=== PATIENT | female | born 1995 | race Hispanic/Latino ===

== ENCOUNTER 2017-07-03 20:06 | Emergency (ER) | payer BC ==
[2017-07-03] MEDS ORDERED: Ondansetron ODT 4 MG TAB ONE (20:29)
[2017-07-03] MEDS ORDERED: Ibuprofen 800 MG TAB ONE (20:29)
[2017-07-03] MEDS ORDERED: Acetaminophen 500 MG TAB ONE (21:52)
== END 2017-07-03 22:47 | disposition home or self-care (01) ==
LOC: ERS 20:06
DX: J11.1 Influenza due to unidentified influenza virus with other respiratory manifestations (principal); F41.9 Anxiety disorder, unspecified; F17.210 Nicotine dependence, cigarettes, uncomplicated
CPT/HCPCS: 96360; Q0162

== ENCOUNTER 2018-11-17 22:04 | Emergency (ER) | payer BC ==
[2018-11-17 22:43] LABS: Bilirubin Negative (Negative); Blood, Urine Negative (Negative); Clarity CLEAR (Clear); Glucose, Urine (Dipstick) Negative (Negative); Leukocyte Small (Negative); Nitrite Negative (Negative); Protein, Urine (Dipstick) Negative (Neg-Trace); Specific Gravity, Urine 1.027 (1.002-1.036); pH, Urine 6.5 (5.0-9.0)
[2018-11-17 22:44] LABS: Bacteria/HPF None Seen HPF (None Seen); Hyaline Casts/LPF 0-3 HYALINE CAST LPF (0-3 Hyaline); WBC/HPF 0-3 HPF (0-3)
[2018-11-17 22:48] LABS: #Eosinphils 0.1 thou/uL (0.0-0.7); #Lymphocytes 2.2 thou/uL (1.20-3.40); #Monocytes 0.7 thou/uL (0.11-0.59); #Neutrophils 4.3 thou/uL (1.40-6.50); %Basophils 0.4 % (0.0-1.0); %Eosinophils 1.4 % (0.0-10.0); %Lymphocytes 30.5 % (21.0-51.0); %Monocytes 9.2 % (0.0-10.0); %Neutrophils 58.6 % (42.0-75.0); Hemoglobin 12.3 g/dL (12.0-16.0); Mean Corpuscular HGB CONC 34.7 g/dL (32.0-36.0); Mean Corpuscular Hemoglobin 31.3 pg (27.0-31.0); Mean Corpuscular Volume 90.2 fL (78.0-98.0); Mean Platelet Volume 8.1 fL (7.4-10.4); Platelet Count 198 thou/uL (130-400); RBC Distribution Width 10.9 % (11.5-14.5); Red Blood Cell (RBC) Count 3.92 mill/uL (4.20-5.40); White Blood Cell (WBC) Count 7.3 thou/uL (4.8-10.8)
[2018-11-17 23:11] LABS: ALT (SGPT) 12 U/L (8-55); AST (SGOT) 15 U/L (5-34); Albumin 4.2 g/dL (3.5-5.0); Alkaline Phosphatase 51 U/L (40-150); Anion Gap 12 mmol/L (10-20); BUN (Urea Nitrogen) 12 mg/dL (7.0-18.7); Bilirubin, Total 0.3 mg/dL (0.2-1.2); Calc. Creatinine Clearance 0 mL/min (70-130); Calcium 9.2 mg/dL (7.8-10.44); Carbon Dioxide 23 mmol/L (22-29); Chloride 106 mmol/L (98-107); Estimated GFR-MDRD Greater than 90; Globulin 2.8 g/dL (2.4-3.5); Glucose 96 mg/dL (70-105); Potassium 3.6 mmol/L (3.5-5.1); Sodium 137 mmol/L (136-145)
--- NOTE | 2018-11-17 23:37 | ULT ---
Exam: Pelvic ultrasound HISTORY: Pelvic pain; positive test COMPARISON: None TECHNIQUE: Multiple grayscale and color Doppler images were obtained in a transabdominal and transvag inal pelvic ultrasound. Spectral analysis of the Doppler waveforms of the ovaries were performed. FINDINGS: CERVIX: No evidence of nabothian cysts. UTERUS: A gestational sac is seen in the uterus. This contains a pole with heart rate of 126 bp m. [place]-rump length of the pole is 0.92 cm which estimates gestational age of 7 weeks 0 days. A normal-appearing yolk sac is seen. No free fluid is seen in the pelvis. RIGHT OVARY: Normal flow without focal mass. LEFT OVARY: Normal flow without focal mass. IMPRESSION: Single live intrauterine with estimated age of 7 weeks 0 days
[2018-11-19 21:20] LABS: Chlamydia by PCR Inconclusive (NotDetected); GC by PCR Inconclusive (NotDetected)
== END 2018-11-18 00:28 | disposition home or self-care (01) ==
LOC: ERS 22:04
DX: O20.0 Threatened abortion (principal); O99.341 Other mental disorders complicating pregnancy, first trimester; F41.9 Anxiety disorder, unspecified; F32.9 Major depressive disorder, single episode, unspecified; Z87.891 Personal history of nicotine dependence; Z3A.01 Less than 8 weeks gestation of pregnancy
CPT/HCPCS: 36415; 76856; 80053; 81003; 81015; 84702; 85025; 86900; 86901; 87480; 87491; 87510; 87591; 87660

== ENCOUNTER 2019-02-07 08:36 | Outpatient (CLI) | payer BC, MEDICAID ==
--- NOTE | 2019-02-07 13:00 | ULT ---
OB ULTRASOUND COMPLETE GREATER THAN 14 WEEKS: 02/07/19 HISTORY: anatomy. Single viable intrauterine fetus is noted in transverse lie on the maternal left side. Placenta is an terior and low lying but without manas placenta previa. heart rate: 150 beats per minute. Amniotic fluid is within normal limits. ANATOMY: The visualized brain, four chamber heart, three vessel cord, stomach, bladder, kidneys, spine, extremity regions are unremarkable. Cervical length is within normal limits. BIOMETRY: BPD 4.3 cm - - 19 weeks, 0 days [place] circumference 16.1 cm - - 19 weeks, 0 days Abdominal circumference 13.9 cm - - 19 weeks, 2 days Femur length 2.8 cm - - 18 weeks, 5 days IMPRESSION: Single viable intrauterine fetus at 19 weeks, 0 days gestation. ARJUN 07/06/2019. Estimated weight 266 grams. POS: OFF
== END 2019-02-07 08:37 | disposition home or self-care (01) ==
LOC: BICULT 08:36
PROVIDERS: ATTEND Family Medicine
DX: Z34.82 Encounter for supervision of other normal pregnancy, second trimester (principal); Z3A.19 19 weeks gestation of pregnancy
CPT/HCPCS: 76805

== ENCOUNTER 2019-02-15 18:11 | Day surgery (SDC) | payer BC, OTHER ==
[2019-02-15 19:24] LABS: Bacteria/HPF None Seen HPF (None Seen); Bilirubin Negative (Negative); Blood, Urine Negative (Negative); Clarity Clear (Clear); Glucose, Urine (Dipstick) Normal (Negative); Leukocyte 25 Leu/uL (Negative); Nitrite Negative (Negative); Protein, Urine (Dipstick) 20 mg/dL (Neg-Trace); Squamous Epithelial 0-3 HPF (0-3); Urobilinogen 3 mg/dL (Less than 2)
--- NOTE | 2019-02-15 19:56 | ULT ---
ULTRASOUND OBSTETRICAL LIMITED: DATE: 02/15/2019 HISTORY: 23-year-old female with abdominal pain during second trimester of . FINDINGS: number: wal[place] lie: Breech Maternal cervix: 3.5 cm. Closed. Placenta: Anterior. No placenta previa. No abruptio placentae. Amniotic fluid volume: STAN = 12.5cm heart rate: 141 bpm anatomy not evaluated. biometry not measured: IMPRESSION: 1) Live 2nd trimester intrauterine gestation. 2) breech lie. 4) no placenta previa.
--- NOTE | 2019-02-16 09:44 | SS ---
DATE OF ADMISSION: 02/15/2019 DATE OF DISCHARGE: 02/15/2019 REGULAR PHYSICIAN: Carmen Shafer MD EVALUATING PHYSICIAN: Eddie Willis MD CHIEF COMPLAINT: Abdominal pain, possible leakage of fluid. HISTORY OF PRESENT ILLNESS: Ms. Cowart is a 23-year-old G3, P2-0-0-2 with an estimated date of confinement of 07/06/2019, who presents complaining of a 12- to 24-hour history of left-sided abdominal pain, worse when she walks along with possible leakage of fluid. She denies vaginal bleeding. She does report occasionally urinary frequency. Her care has been with Dr. Shafer and she was told recently that she had a low-lying placenta. PAST OBSTETRICAL HISTORY: Two uncomplicated vaginal deliveries at term. PAST MEDICAL HISTORY: None. PAST SURGICAL HISTORY: None. CURRENT MEDICATIONS: vitamins. ALLERGIES: NO KNOWN ALLERGIES. SOCIAL HISTORY: Denies tobacco, alcohol, or drug use. REVIEW OF SYSTEMS: Denies nausea, vomiting, fever, chills, or vaginal bleeding. PHYSICAL EXAMINATION: VITAL SIGNS: Stable. She is afebrile. GENERAL: She is in no acute distress. ABDOMEN: Soft, nontender, and gravid. Ultrasound shows a breech consistent with dates with an STAN of 12.5, an anterior placenta without evidence of low-lying placenta or previa. Urinalysis returned showing a specific gravity of 1.032 with trace protein, negative ketones, negative blood, negative nitrites, negative bilirubin. Leukocyte esterase is small. Microscopic urinalysis shows 4-6 rbc's, 4-6 wbc's with no bacteria seen. 0-3 squamous cells are seen. Pelvic examination was then performed after the ultrasound, and the cervix is long and closed. There is no fluid or blood in the vagina. ASSESSMENT: 1. 19 and 6/7th week intrauterine . 2. No evidence of ruptured membranes. 3. Suspected round ligament pain. PLAN: The nature of my findings have been discussed with her in detail. She was told to rest at home, possibly use a heating pad low on her back and Tylenol for symptoms. She states she has a followup appointment with Dr. Shafer next week. She voiced understanding of her discharge instructions and was sent home in good condition. Job ID: [id number]
== END 2019-02-15 20:11 | disposition home or self-care (01) ==
LOC: L&D/OP 18:11
PROVIDERS: ATTEND Family Medicine
DX: O99.89 Other specified diseases and conditions complicating pregnancy, childbirth and the puerperium (principal); R10.9 Unspecified abdominal pain; Z3A.19 19 weeks gestation of pregnancy
CPT/HCPCS: 76815; 81003; 81015; 99285

== ENCOUNTER 2019-02-23 08:30 | Outpatient (CLI) | payer BC, MEDICAID ==
--- NOTE | 2019-02-23 10:12 | ULT ---
ULTRASOUND OB FOLLOWUP: HISTORY: Low-lying placenta. COMPARISON: Limited OB ultrasound 02/12/2019. FINDINGS: Real-time, [place] scale, and color evaluation and spectral analysis of the gravid is performed. Single viable intrauterine . Amniotic fluid index is normal. The placenta is anterior without ev idence of previa or a low-lying placental tip. The heart rate is documented at 150 b.p.m. Cep halic presentation. IMPRESSION: Normal examination. No evidence of a low-lying placenta or placenta previa. POS: TPC
== END 2019-02-23 08:31 | disposition home or self-care (01) ==
LOC: BICULT 08:30
PROVIDERS: ATTEND Family Medicine
DX: O44.40 Low lying placenta NOS or without hemorrhage, unspecified trimester (principal)
CPT/HCPCS: 76816

== ENCOUNTER 2019-07-04 11:14 | Inpatient (IN) | payer BC, OTHER ==
[2019-07-04 11:43] VITALS: BMI 32.3
[2019-07-04] MEDS ORDERED: Fentanyl 4 mcg/Bup 0.1% Cadd 0 ML ONE (11:48)
[2019-07-04] MEDS ORDERED: Fentanyl 4 mcg/Bup 0.1% Cadd 100 ML ONE (11:49)
[2019-07-04] MEDS ORDERED: Lidocaine 1% (PF) 30 ML VIAL SC PRN (12:10)
[2019-07-04] MEDS ORDERED: Promethazine HCl 25 MG/ML VIAL IM PRN ×3 (12:10→14:31)
[2019-07-04] MEDS ORDERED: HYDROcodone/Acetaminophen 5/325 mg Tablet PO PRN ×3 (12:10→16:32)
[2019-07-04] MEDS ORDERED: Ibuprofen 800 MG TAB PO PRN (12:10)
[2019-07-04] MEDS ORDERED: hydrALAZINE 20 MG/ML VIAL SLOW IVP PRN ×3 (12:10→16:32)
[2019-07-04] MEDS ORDERED: Ondansetron PF 4 MG/2 ML Vial IVP PRN ×4 (12:10→16:32)
[2019-07-04] MEDS ORDERED: Butorphanol Tartrate 1 MG/ML VIAL SLOW IVP PRN (12:10)
[2019-07-04] MEDS ORDERED: Lidocaine 1% (PF) 30 ML VIAL ONE (12:11)
[2019-07-04] MEDS ORDERED: NS / Oxytocin 40 units/1000ml 1,000 ML ONE (12:11)
[2019-07-04] MEDS ORDERED: Lactated Ringer's 1,000 ML IV SCH (12:15)
[2019-07-04 12:20] LABS: Hemoglobin 11.9 g/dL (12.0-16.0); Mean Corpuscular HGB CONC 33.5 g/dL (32.0-36.0); Mean Corpuscular Hemoglobin 28.2 pg (27.0-31.0); Mean Corpuscular Volume 84.1 fL (78.0-98.0); Mean Platelet Volume 9.8 fL (7.4-10.4); Platelet Count 181 thou/uL (130-400); Red Blood Cell (RBC) Count 4.21 mill/uL (4.20-5.40); White Blood Cell (WBC) Count 10.6 thou/uL (4.8-10.8)
--- NOTE | 2019-07-04 12:51 | PDOC.EVN ---
Event Note - Event Note Event Note: Courtesy orders placed earlier Orders...only. Patient not seen by me
[2019-07-04 13:44] LABS: HBSAg Index 0.21 S/CO (0-0.99); HIV (1/2) Antibody/Antigen Non-Reactive (NonReactive); HIV 1/2 INDEX 0.11 S/CO (<1.00); Hep B Surf Ag Non-Reactive S/CO (NonReactive)
[2019-07-04 13:45] LABS: Syphilis Antibody Nonreactive (Nonreactive); Syphilis Antibody Index 0.04 S/CO (<1.00 Non-Reactive)
[2019-07-04] MEDS ORDERED: Naloxone HCl 0.4 mg/ml Vial IVP PRN ×4 (14:31)
[2019-07-04] MEDS ORDERED: diphenhydrAMINE 50 MG/ML VIAL IVP PRN ×2 (14:31)
[2019-07-04] MEDS ORDERED: Acetaminophen 325 MG TAB PO PRN ×2 (14:31)
[2019-07-04] MEDS ORDERED: ePHEDrine/0.9% NaCl/PF SYRINGE 50 mg/10 ml SLOW IVP PRN ×2 (14:31)
[2019-07-04] MEDS ORDERED: Lactated Ringer's 500 ML IV PRN ×2 (14:31)
[2019-07-04] MEDS ORDERED: Fentanyl 4 mcg/Bupivacaine 0.1% Cassette 100 ML EPIDURAL SCH (14:45)
[2019-07-04] MEDS ORDERED: Communication Order-Pharmacy FS SCH ×2 (14:45)
[2019-07-04] MEDS: NS / Oxytocin 40 units/1000ml 1,000 ML IV PRN ×2 (15:05→15:59)
[2019-07-04] MEDS ORDERED: diphenhydrAMINE 25 MG CAP PO PRN (16:32)
[2019-07-04] MEDS ORDERED: NS / Oxytocin 40 units/1000ml 1,000 ML IV SCH (16:32)
[2019-07-04] MEDS ORDERED: Acetaminophen/Codeine 30-300mg Tablet PO PRN (16:32)
[2019-07-04] MEDS ORDERED: Preparation H Ointment 28 GM TUBE PR PRN (16:32)
[2019-07-04] MEDS ORDERED: Milk Of Magnesia 30 ML UDCUP PO PRN (16:32)
[2019-07-04] MEDS ORDERED: Benzocaine-Menthol 82.5 ML CAN TOP PRN (16:32)
[2019-07-04] MEDS ORDERED: Lanolin Ointment 7 GM TUBE TOP PRN (16:32)
[2019-07-04] MEDS ORDERED: traMADol HCl 50 MG TAB PO PRN (16:32)
[2019-07-04] MEDS ORDERED: Bisacodyl 10 MG SUPP PR PRN (16:32)
[2019-07-04] MEDS: Ferrous Sulfate 325 MG TAB PO SCH (17:30)
[2019-07-04] MEDS: Docusate Calcium (SURFAK) 240 MG CAP PO SCH (21:18)
[2019-07-04] MEDS: Ibuprofen 800 MG TAB PO SCH (21:18)
[2019-07-05] MEDS: Ibuprofen 800 MG TAB PO SCH ×3 (05:26→22:14)
[2019-07-05] MEDS: Ferrous Sulfate 325 MG TAB PO SCH ×2 (08:07→15:49)
[2019-07-05] MEDS ORDERED: Prenatal Vitamin 1 TAB PO SCH (09:00)
[2019-07-05] MEDS: Docusate Calcium (SURFAK) 240 MG CAP PO SCH ×2 (09:30→22:14)
[2019-07-06] MEDS: Ibuprofen 800 MG TAB PO SCH (05:42)
[2019-07-06] MEDS: Ferrous Sulfate 325 MG TAB PO SCH (09:11)
[2019-07-06 10:53] VITALS: BP 121/76; TEMP 98
== END 2019-07-06 12:45 | disposition home or self-care (01) | DRG 807 ==
LOC: L&D 11:14 → L&D-LIB 11:46 → 3SW 16:59
PROVIDERS: ADMIT Family Medicine; ATTEND Family Medicine
PROC: 10E0XZZ Delivery of Products of Conception, External Approach (ICD-10-PCS; principal; 2019-07-04)
PROC: 10907ZC Drainage of Amniotic Fluid, Therapeutic from Products of Conception, Via Natural or Artificial Opening (ICD-10-PCS; 2019-07-04)
DX: O80 Encounter for full-term uncomplicated delivery (principal); Z37.0 Single live birth; Z3A.39 39 weeks gestation of pregnancy
CPT/HCPCS: 36415; 85027; 86780; 86850; 86900; 86901; 87340; 87389; J2001

== ENCOUNTER 2019-11-03 11:36 | Inpatient (IN) | payer BC, OTHER ==
[~2019-11-03 11:36] MED LIST: Magnevist 469MG/ML 20 ML VIAL ONE
[2019-11-03] MEDS ORDERED: Ondansetron PF 4 MG/2 ML Vial ONE (12:23)
[2019-11-03] MEDS ORDERED: Ketorolac Tromethamine 30 MG/ML VIAL ONE (12:23)
[2019-11-03] MEDS ORDERED: Morphine 4 MG/ML VIAL ONE (12:23)
[2019-11-03 12:38] LABS: #Eosinphils 0.1 thou/uL (0.0-0.7); #Lymphocytes 1.7 thou/uL (1.20-3.40); #Monocytes 0.4 thou/uL (0.11-0.59); %Basophils 0.9 % (0.0-1.0); %Eosinophils 1.3 % (0.0-10.0); %Lymphocytes 32.8 % (21.0-51.0); %Monocytes 6.8 % (0.0-10.0); %Neutrophils 58.2 % (42.0-75.0); Hemoglobin 13.3 g/dL (12.0-16.0); Mean Corpuscular HGB CONC 32.7 g/dL (32.0-36.0); Mean Corpuscular Hemoglobin 29.6 pg (27.0-31.0); Mean Corpuscular Volume 90.8 fL (78.0-98.0); Mean Platelet Volume 8.7 fL (7.4-10.4); Platelet Count 187 thou/uL (130-400); RBC Distribution Width 12.9 % (11.5-14.5); Red Blood Cell (RBC) Count 4.49 mill/uL (4.20-5.40); White Blood Cell (WBC) Count 5.1 thou/uL (4.8-10.8)
[2019-11-03 12:58] LABS: ALT (SGPT) 20 U/L (8-55); AST (SGOT) 19 U/L (5-34); Albumin 4.3 g/dL (3.5-5.0); Alkaline Phosphatase 79 U/L (40-110); Anion Gap 12 mmol/L (10-20); BUN (Urea Nitrogen) 10 mg/dL (7.0-18.7); Bilirubin, Total 0.5 mg/dL (0.2-1.2); Calc. Creatinine Clearance 0 mL/min (70-130); Calcium 9.3 mg/dL (7.8-10.44); Carbon Dioxide 21 mmol/L (22-29); Chloride 107 mmol/L (98-107); Estimated GFR-MDRD Greater than 90; Globulin 3.2 g/dL (2.4-3.5); Glucose 96 mg/dL (70-105); Potassium 4.1 mmol/L (3.5-5.1); Protein, Total 7.5 g/dL (6.0-8.3); Sodium 136 mmol/L (136-145)
[2019-11-03] MEDS ORDERED: Fentanyl 100 MCG/2 ML VIAL ONE (13:16)
[2019-11-03 13:37] LABS: Bilirubin Negative (Negative); Blood, Urine Negative (Negative); Clarity Clear (Clear); Glucose, Urine (Dipstick) Normal (Negative); Leukocyte Negative Leu/uL (Negative); Nitrite Negative (Negative); Protein, Urine (Dipstick) Negative (Neg-Trace); Urobilinogen Normal mg/dL (Less than 2)
[2019-11-03 13:39] LABS: Pregnancy Test - Urine (BHCG) Negative (Negative); Pregu Control Background? CLEAR/WHITE (CLR/WHITE); Pregu Control Bar Appear? YES (CONTROL BAR)
--- NOTE | 2019-11-03 14:04 | CT ---
CT Stone Protocol 11/03/2019 12:02 PM HISTORY: Back pain for 3 days. COMPARISON: Postcontrast CT abdomen and pelvis on 01/17/2017 Technique: Multiple contiguous axial CT images are obtained through the abdomen and pelvis without IV contrast. Coronal reformats are provided. FINDINGS: This examination is limited for the evaluation of solid organs and vascular structures due to the lac k of intravenous contrast. Lower Chest: Dependent bibasilar atelectasis. Abdomen: Liver: Grossly normal non-enhanced CT appearance. Gallbladder: Within normal limits for CT imaging. Pancreas: Grossly normal nonenhanced CT appearance. Spleen: Grossly normal nonenhanced CT appearance. Adrenals: Grossly normal nonenhanced CT appearance. Kidneys: No renal calculi are visualized, and there is no evidence of hydronephrosis. Ureters: No ureteral calculus is seen.. Pelvis: Urinary bladder: within normal limits. Reproductive Organs: Previously seen intrauterine contraceptive device is no longer visualized. A 2.9 cm hypodense cystic lesion is seen just superior to the uterine fundus and appears contiguous with the left ovary and probably represents a left ovarian cyst versus paraovarian cyst. Lymph Nodes: No enlarged lymph nodes. Bowel: Small hiatal hernia is seen. Loops of small bowel are normal in caliber. Appendix: The appendix is normal in caliber. Peritoneum: No free fluid, free air, or fluid collection. Retroperitoneum: within normal limits. Vessels: Abdominal aorta is normal in caliber.. Abdominal Wall: within normal limits. Bones: within normal limits. IMPRESSION: 1. No renal or ureteral calculi are seen bilaterally. 2. Probable small left ovarian versus paraovarian cyst. 3. No CT evidence of appendicitis. 4. Small hiatal hernia.
[2019-11-03] MEDS ORDERED: Acetaminophen 325 MG TAB PO PRN (15:07)
[2019-11-03] MEDS ORDERED: Ondansetron ODT 4 MG TAB PO PRN (15:11)
--- NOTE | 2019-11-03 16:49 | MRI ---
MRI OF THE LUMBAR SPINE WITHOUT AND WITH CONTRAST: 11/03/19 COMPARISON: CT abdomen/pelvis 11/03/19. HISTORY: Left flank pain that started three days ago. Chronic back pain. TECHNIQUE: Multiplanar and multisequence MR images were obtained of the lumbar spine without and with IV contras t. FINDINGS: There is mild desiccation of the L5-S1 intervertebral disc. The vertebral bodies demonstrate normal h eight without fracture or subluxation. The conus medullaris terminates normally at L1. There is a wel l circumscribed cystic structure in the pelvis measuring 1.9 cm in size which likely represents a lef t ovarian cyst/follicle as it is immediately adjacent to the left ovary. The other prevertebral and p araspinal soft tissues are unremarkable. No abnormal enhancement is seen on this examination. T12-L1 through L4-5: Unremarkable. L5-S1: There is a right paracentral protrusion measuring 7 mm in size. This impresses upon the right S1 nerve root. This causes mild central canal stenosis. No posterior facet arthrosis. No significant neural foraminal stenosis. IMPRESSION: There is a small protrusion at L5-S1 impressing upon the right S1 nerve root. POS: EAA
--- NOTE | 2019-11-03 17:15 | MRI ---
MRI OF THE THORACIC SPINE WITHOUT AND WITH CONTRAST: 11/03/19 HISTORY: Left flank and back pain that is 10 out of 10 in severity. TECHNIQUE: Multiplanar and multisequence MRI images were obtained in a thoracic spine without and with IV contra st. FINDINGS: The vertebral bodies and intervertebral discs demonstrate normal height and alignment without fractur e or subluxation. No marrow signal abnormality is present. The visualized cord demonstrates normal signal throughout. No abnormal enhancement is seen on this ex amination. The prevertebral and paraspinal soft tissues are unremarkable. No significant posterior bulge or protrusion is seen throughout the thoracic spine. No neural foramin al stenosis is seen. No posterior facet arthrosis is seen. IMPRESSION: Normal MRI of the thoracic spine. POS: XIANGA
--- NOTE | 2019-11-03 17:54 | HP ---
CHIEF COMPLAINT: Back pain. HISTORY OF PRESENT ILLNESS: A 24-year-old female without significant past medical history, presenting with 3 day duration of back pain. Back pain is worse without any movement. It is mostly on the lower back, constant, without any radiation quality. Mo associated tingling, numbness in her extremities including saddle anesthesia and no incontinence. She has 3 children and she states that she knows what the pain is and this is much severe. She denies any recent travel, trauma to the back or muscular injury such as lifting any heavy objects. She denies being diabetic. No rash in the body. No fever recently. No sick exposure. In the ER, she received fentanyl, morphine as well as Toradol. The patient's pain did not relieve. ER physician asked for admission evaluation. No prior history of this severe nature of the back pain. Occasionally, she does have some on and off pain, but this is most severe that she could not handle, and she needs to come to the ER. REVIEW OF SYSTEMS: 13-point review of systems reviewed with the patient and she denies other than what is addressed in the history of present illness. She has no fever, night sweats, or chills. No productive cough, chest pain, or orthopnea. No nausea, vomiting, abdominal pain, constipation, diarrhea, hematuria, hematochezia, denies dysuria. Her last menstrual cycle was in the 3rd week of September. PAST MEDICAL HISTORY: None. SURGICAL HISTORY: None. SOCIAL HISTORY: She has 3 children. Natural childbirth. Does not smoke or drink alcohol. FAMILY HISTORY: Father had hypertension. Mother has ALS. MEDICATIONS: None. PHYSICAL EXAMINATION: GENERAL: She is afebrile and normotensive. She is in mild distress currently. She just returned from getting MRI. She requires assistance to get on to the bed. I was able to examine her briefly, but she does not want me to touch her back at this time. Just a quick look at her back, I do not see any abnormalities including rash. However, I could not completely examine including flank, side, as well as on the spine. CARDIOVASCULAR: Rate and rhythm without murmurs, rubs, or gallops. LUNGS: Clear to auscultation with no wheezing, rales, or rhonchi. ABDOMEN: Soft, nontender, nondistended. Good bowel sounds. EXTREMITIES: Without any pitting edema. NEUROLOGIC: I did not see any focal deficits, however, complete exam is not performed. PSYCHIATRIC: Appropriate mood and affect. LABORATORY DATA: CBC in the normal range. Normal MRI of the thoracic spine. There is a small protrusion at the L5-S1 impinging on the right S1 nerve root. CT of the abdomen and pelvis, no renal or ureteral calculi, left ovarian cyst, no evidence of appendicitis, small hiatal hernia. IMPRESSION AND PLAN: This is a 24-year-old female presenting with severe back pain. The patient did not have any neurological compromise other than severe pain. She has no saddle anesthesia. No tingling, weakness, or numbness in her extremities. based on MRI report, She does have a small protrusion at the L5-S1 impinging on the S1 nerve root. 1. Disk protrusion. 2. Impingement on the S1 nerve root. I believe mostly supportive care at this point with pain control. I will consult Neurosurgery for other recommendations including surgical intervention and/or brace. We will follow the clinical course. Job ID: [id number] [facility]ENTER[facility]
[2019-11-03 19:05] LABS: Amphetamine Not Detected (NotDetected); Barbiturates Screen Not Detected (NotDetected); Benzodiazepine Screen Not Detected (NotDetected); Cocaine Metabolite Screen Not Detected (NotDetected); Medtox Control Line Valid? VALID (VALID); Medtox Reader # READER 1; Methadone Not Detected (NotDetected); Methamphetamine Not Detected (NotDetected); Opiate Screen Detected (NotDetected); Oxycodone Screen Not Detected (NotDetected); Phencyclidine (PCP) Not Detected (NotDetected); THC/Cannabinoid Screen Detected (NotDetected); Tricyclic Screen Not Detected (NotDetected)
[2019-11-03] MEDS: HYDROcodone/Acetaminophen 5/325 mg Tablet PO PRN ×2 (19:19→23:11)
[2019-11-03] MEDS: Cyclobenzaprine 10 MG TAB PO PRN (19:44)
[2019-11-03 19:56] VITALS: BMI 29.8
[2019-11-04] MEDS: HYDROcodone/Acetaminophen 5/325 mg Tablet PO PRN ×2 (04:22→20:05)
[2019-11-04] MEDS ORDERED: diphenhydrAMINE 25 MG CAP PO PRN (08:07)
[2019-11-04] MEDS ORDERED: Dexamethasone 4 MG TAB PO SCH (09:00)
[2019-11-04] MEDS ORDERED: tiZANidine HCl 4 MG TAB PO SCH (09:00)
--- NOTE | 2019-11-04 09:31 | CON ---
DATE OF CONSULTATION: 11/04/2019 HISTORY OF PRESENT ILLNESS: Ms. Cowart is a 24-year-old female, who presents to the emergency room with 3 to 4 days of lower back pain radiating into bilateral gluteal muscles. She states she does not know what happened or how she hurt her back. It is unclear what she might have done leading up to this pain. She is concerned because her mother had back surgery and was diagnosed with ALS and a year later. She states that she does not want this to happen to her. Her condition is exacerbated by movement to the point that she states she cannot walk. When I saw her in the room, she had a Humphries in place and states that she needs assistance to move. She does state that she has recently given to a third child. MEDICATIONS: None. PAST SURGICAL HISTORY: None. PAST MEDICAL HISTORY: None. SOCIAL HISTORY: 3 children. Does not smoke or drink alcohol. Denies illicit drugs. FAMILY HISTORY: Father, hypertension. Mother from ALS. REVIEW OF SYSTEMS: CONSTITUTIONAL: Denies fever or chills. EAR, NOSE, AND THROAT: Denies change in vision or hearing. CARDIAC: Denies chest pain, shortness of breath, or diaphoresis. PULMONARY: Denies shortness of breath, cough, or hemoptysis. GI: Denies abdominal pain, nausea, vomiting, diarrhea, change in stool formation and consistency. : Denies bloody urine. Complains of frequency of urination and trouble holding her urine. SKIN: Denies skin rash, bruising, bleeding, skin masses. MUSCULOSKELETAL: As per history of present illness. NEUROLOGIC: As per history of present illness. PSYCHOLOGICAL: Denies anxiety, depression, or behavior changes. PHYSICAL EXAMINATION: HEENT: Pupils are equal. Extraocular movements are intact. NECK: Soft, supple. No masses are noted. Range of motion is intact and nonpainful. NEUROLOGIC: Awake, alert, oriented x3. Memory, attention, fund of knowledge. Cranial nerves grossly intact. Due to the pain, she has reduced strength in her iliopsoas, quadriceps, hamstrings, anterior tib, EHL, and gastrocnemius. In my opinion, she was not trying to push against resistance. There is no area of dermatomal or sensory loss. Toes are downgoing. Unable to assess gait. LABORATORY DATA: MRI showed a right 7 mm bulging disk that is pushing on the S1 nerve root. PLAN: This could be managed as outpatient. Recommend physical therapy and pain management for transforaminal epidural steroid injections. We recommend her to get upright x-rays of her L-spine, flexion and extension view to assess for any instability if conservative measures fail and she considers surgery at a later time. We asked that she would make an appointment with our clinic if she would like to peruse surgery at a later date. Job ID: [id number] MTDD
--- NOTE | 2019-11-04 09:39 | PRG ---
DATE OF SERVICE: 11/04/2019 I personally interviewed and examined the patient, agreed with documentation of Beau Rodriguez PA-C, dated 11/04/2019. Briefly, Shanelle Cowart is a 24-year-old woman with a few month history of on and off back pain crescendoing in the last 4 days to the point where she could not manage her pain at home. She came to the hospital. Since hospitalization, she has noticed some paresthesias down the legs, especially on the right side involving the foot and the heel. It is very difficult for her pain to get under better control. Ms. Cowart is rather adamant that she does not want to consider surgical intervention currently. On my neurological examination, I do not find that Ms. Tavarez is giving full effort for her motor examination. This could be because of the pain that she is experiencing. Nonetheless, I think her participation in the examination is problematic. She has problematic toward interpreting her true motor function. I reviewed MR image of the lumbar spine showing a moderate-sized intervertebral disk herniation in the lumbosacral interspace on the right side touching the S1 nerve root. I had a long discussion Ms. Cowart about management. She would like to try pain management injections and physical therapy rather than surgical intervention. If those modalities fail to alleviate her pain, we can operate at any time in the future. Job ID: [id number]
[2019-11-04] MEDS: Docusate 100 MG CAP PO SCH ×2 (09:50→20:05)
[2019-11-04] MEDS: Morphine 2 MG/ML SYRINGE SLOW IVP PRN ×2 (10:09→22:05)
--- NOTE | 2019-11-04 12:06 | PDOC.HOSPP ---
- Subjective Encounter Date: 11/04/19 Encounter Time: 08:50 Subjective: pain controlled, counselled on pros and cons of steroid injection. she would benefit with trial of injection. otherwise risk for opioid addiction. I explained to the pt. - Objective Vital Signs & Weight: Vital Signs (12 hours) Temp Pulse Resp BP BP BP Pulse Ox 11/04/19 08:00 98.7 F 60 16 114/67 100 11/04/19 07:00 98.9 F 60 16 114/52 L 150/85 H 100 11/04/19 04:32 98.2 F 60 16 110/67 100 Weight Admit Weight 158 lb Weight 158 lb I&O: 11/03/19 11/04/19 11/05/19 06:59 06:59 06:59 Intake Total 400 450 Output Total 150 650 Balance 250 -200 Result Diagrams: 11/03/19 12:14 11/03/19 12:14 Hospitalist ROS - Medication Medications: Active Medications Generic Name Dose Route Start Last Admin Trade Name Freq PRN Reason Stop Dose Admin Hydrocodone Bitart/Acetaminophen 1 tab 11/03/19 15:07 11/04/19 04:22 [place] 5/325 PO 1 tab Q4H PRN Administration Moderate Pain (4-6) Cyclobenzaprine HCl 10 mg 11/03/19 15:11 11/03/19 19:44 Flexeril PO 10 mg TID PRN Administration Muscle Spasm Docusate Sodium 100 mg 11/04/19 09:00 11/04/19 09:50 Colace PO 100 mg BID LUIS Administration Morphine Sulfate 2 mg 11/04/19 08:01 11/04/19 10:09 Morphine SLOW IVP 2 mg Q2H PRN Administration Pain Pantoprazole Sodium 40 mg 11/04/19 09:00 11/04/19 09:50 Protonix PO 40 mg DAILY LUIS Administration - Exam General Appearance: NAD, awake alert Eye: PERRL ENT: normocephalic atraumatic Neck: supple Heart: RRR Respiratory: CTAB, normal chest expansion Gastrointestinal: soft, normal bowel sounds Neurological: no focal deficits Hosp A/P - Plan Intractable back pain 2/2 intervertbral disc herniation at L4-5 S1 nerve root impingement. --appreciate NS help - counselled on pros and cons of steroid injection. she would benefit with trial of injection. otherwise risk for opioid addiction. I explained to the pt. -PT consult placed.
[2019-11-04] MEDS: Dexamethasone 4 MG TAB PO SCH ×2 (12:59→18:35)
[2019-11-05] MEDS: Dexamethasone 4 MG TAB PO SCH ×5 (00:04→22:53)
[2019-11-05] MEDS: Cyclobenzaprine 10 MG TAB PO PRN ×3 (00:10→20:10)
[2019-11-05] MEDS: Morphine 2 MG/ML SYRINGE SLOW IVP PRN ×5 (02:17→22:53)
[2019-11-05] MEDS ORDERED: Dexamethasone 4 MG TAB PO SCH (08:00)
[2019-11-05] MEDS: Docusate 100 MG CAP PO SCH ×2 (09:41→20:10)
[2019-11-05] MEDS ORDERED: Iopamidol-M 300 61% 15 ML VIAL ONE (09:42)
[2019-11-05] MEDS ORDERED: Bupivacaine 0.25% 10 ML VIAL ONE (09:42)
[2019-11-05] MEDS ORDERED: Lidocaine 2% MPF 10 ML AMP (For Epidural Use) ONE (09:42)
--- NOTE | 2019-11-05 12:47 | PDOC.HOSPP ---
- Subjective Encounter Date: 11/05/19 Encounter Time: 09:00 Subjective: talk to RN as pain specialist visit pending. Pt doing ok, pain controlled. - Objective Vital Signs & Weight: Vital Signs (12 hours) Temp Pulse Resp BP Pulse Ox 11/05/19 07:55 98.3 F 82 18 100/59 L 99 Weight Admit Weight 158 lb Weight 158 lb I&O: 11/04/19 11/05/19 11/06/19 06:59 06:59 06:59 Intake Total 400 450 Output Total 150 2050 Balance 250 -1600 Result Diagrams: 11/03/19 12:14 11/03/19 12:14 Hospitalist ROS - Medication Medications: Active Medications Generic Name Dose Route Start Last Admin Trade Name Freq PRN Reason Stop Dose Admin Hydrocodone Bitart/Acetaminophen 1 tab 11/03/19 15:07 11/04/19 20:05 [place] 5/325 PO 1 tab Q4H PRN Administration Moderate Pain (4-6) Cyclobenzaprine HCl 10 mg 11/03/19 15:11 11/05/19 09:46 Flexeril PO 10 mg TID PRN Administration Muscle Spasm Dexamethasone 4 mg 11/04/19 12:00 11/05/19 06:27 Decadron PO 4 mg Q6HR LUIS Administration Docusate Sodium 100 mg 11/04/19 09:00 11/05/19 09:41 Colace PO 100 mg BID LUIS Administration Morphine Sulfate 2 mg 11/04/19 08:01 11/05/19 09:41 Morphine SLOW IVP 2 mg Q2H PRN Administration Pain Pantoprazole Sodium 40 mg 11/04/19 09:00 11/05/19 09:41 Protonix PO 40 mg DAILY LUIS Administration - Exam General Appearance: NAD, awake alert Eye: PERRL ENT: normocephalic atraumatic Neck: supple Heart: RRR Respiratory: CTAB, normal chest expansion Gastrointestinal: soft, normal bowel sounds Neurological: no focal deficits Hosp A/P - Plan Intractable back pain 2/2 intervertbral disc herniation at L4-5 S1 nerve root impingement. --appreciate NS help - counselled on pros and cons of steroid injection. she would benefit with trial of injection. otherwise risk for opioid addiction. I explained to the pt. -PT consult placed. -- dc home after being reviewed by the pain mgmt, possible steroid injection?
--- NOTE | 2019-11-05 19:46 | CON ---
DATE OF CONSULTATION: 11/05/2019 REASON FOR CONSULTATION: Right lower extremity pain. HISTORY OF PRESENT ILLNESS: The patient is a 24-year-old female, who presented to the emergency room on 11/02 with a 3-4 day history of severe lower back pain radiating to the right lower extremity with an inability to ambulate. The pain was described as sharp, aching and burning that radiated from her lower back to the back of her thigh, to the back of her calf, and then to the lateral side of the right foot. She does feel numbness as well. She has trouble ambulating due to the pain. The pain also does radiate to the left buttock; however, the most severe pain is on her right side. The patient does admit to having back pain chronic intermittently over the last couple of years; however, nothing radiating down the lower extremity and nothing chronic persistent as it is now. The patient was admitted for pain control. She has been given 4 doses of Decadron 4 mg p.o. 3 yesterday and 1 this morning. She has been administered hydrocodone 5/325 last night at 8 p.m. and then morphine 2 mg IV this morning. She stated that these do help with her pain. She has also had cyclobenzaprine 10 mg this morning. Currently, she is lying in bed with severe pain, with any type of movement. REVIEW OF SYSTEMS: GENERAL: The patient does deny fever, chills, night sweats. EYES: No changes in vision, irritation, or eye pain. CARDIOVASCULAR: No chest pain, palpitations, or shortness of breath. PULMONARY: No shortness of breath or dyspnea on exertion. No cough. GASTROINTESTINAL: No nausea, vomiting, or diarrhea. MUSCULOSKELETAL: No joint stiffness or joint swelling. Positive for what is in the HPI. INTEGUMENTARY: No rash, skin lesions, or pruritus. NEUROLOGICAL: No headache, lightheadedness, or seizure. PSYCHIATRIC: No depression, anxiety, or tamika. HEME/LYMPH: No bruising, bleeding, or anemia. GENITOURINARY: No difficulty urinating. PAST MEDICAL HISTORY: No medical history. PAST SURGICAL HISTORY: None. SOCIAL HISTORY: The patient has 3 children. Lives at home and is a [id number] mom. Natural childbirth. Does not smoke, drink, or do drugs. FAMILY HISTORY: Father with hypertension. Mother with ALS, last year. HOME MEDICATIONS: None. PHYSICAL EXAMINATION: VITAL SIGNS: Afebrile. GENERAL: Alert and oriented x4, in mild distress. HEAD: Normocephalic, atraumatic. CARDIOVASCULAR: Rate and rhythm normal with no murmurs, rubs, or gallops. LUNGS: Symmetric nonlabored respirations. ABDOMEN: Soft, nontender, nondistended. EXTREMITIES: Moving all extremities. Upper extremity without any decrease in strength. Bilateral lower extremities, unable to fully assess strength due to pain with any type of motion. Positive straight leg raise on the right and positive contralateral straight leg raise on the left. NEUROLOGIC: Reflexes are 2+ in the bilateral upper extremity and then bilateral patella. Unable to test the Achilles due to the amount of pain the patient is having currently. PSYCHIATRIC: Appropriate mood and affect. LABORATORY DATA: CBC normal. IMAGING: Normal MRI of thoracic spine. CT of the abdomen and pelvis shows a left ovarian cyst, small hiatal hernia. MRI of the lumbar spine shows a right paracentral protrusion of the L5-S1 nerve impinging the right S1 traversing nerve root. ASSESSMENT: M51.17 lumbosacral radiculopathy. PLAN: The patient currently has severe pain and weakness. Trouble ambulating and inability to take care of herself at home due to intractable pain. I recommend performing a right S1 transforaminal epidural steroid injection to help with her pain. I will also write her for [place] and cyclobenzaprine to take as an outpatient once she is discharged and then she will follow up with me in approximately 2 weeks as an outpatient. After the epidural steroid injection today, we will keep her overnight for observation and I believe she can be safely discharged in the morning. Job ID: [id number]
--- NOTE | 2019-11-05 20:14 | OP ---
DATE OF PROCEDURE: 11/05/2019 PROCEDURE PERFORMED: Right S1 transforaminal epidural steroid injection. INFORMED CONSENT: The patient was advised of the procedure and informed of the potential complications including pain, infection, drug reaction, bleeding. Risks are not limited to these and informed consent was obtained. The patient denied recent fever or infection, use of anticoagulants, or . DESCRIPTION OF PROCEDURE: The patient was taken to the procedure room and placed prone on the procedure room table. Fluoroscopic guidance was used to identify their appropriate spinal level. We used ChloraPrep to prep the lower back. We used lidocaine 1% locally for skin and subcutaneous anesthesia. A 25-gauge Chiba needle with a bend at the tip was advanced to the foramen of the right S1 nerve root under fluoroscopic guidance. PA and lateral views and oblique views were obtained to ensure proper placement, and contrast was used to outline the foraminal space. 1 mL of contrast was used. Marcaine 0.25%, 3 mL with Depo-Medrol 80 mg was injected and the needle was withdrawn after negative aspiration. No complications were noted. Vital signs were monitored before and after the procedure. The patient was then discharged back to the floor. DIAGNOSIS: M51.17 lumbosacral radiculopathy. Job ID: [id number]
[2019-11-06] MEDS: Morphine 2 MG/ML SYRINGE SLOW IVP PRN (04:10)
[2019-11-06] MEDS: Dexamethasone 4 MG TAB PO SCH (05:21)
[2019-11-06] MEDS: Cyclobenzaprine 10 MG TAB PO PRN ×2 (05:28→11:34)
[2019-11-06] MEDS: Docusate 100 MG CAP PO SCH (09:06)
[2019-11-06] MEDS: HYDROcodone/Acetaminophen 5/325 mg Tablet PO PRN (09:06)
[2019-11-06 12:03] VITALS: BP 116/71; TEMP 98.1
--- NOTE | 2019-11-06 13:44 | DIS ---
DATE OF ADMISSION: 11/03/2019 DATE OF DISCHARGE: 11/06/2019 DISCHARGE DIAGNOSES: 1. Intractable back pain secondary to intervertebral disk herniation at the L4- L5. 2. S1 nerve root impingement. CONSULTS: 1. Neurosurgery with Dr. Merritt. 2. Pain management with Dr. Fernando Chan. PROCEDURE: Lumbosacral surgery, S1 transforaminal epidural steroid injection. HOSPITAL COURSE: Please refer a history and physical for more details. Briefly , 24-year-old female presented with intractable back pain. Neurosurgery evaluated , and the patient declined surgical intervention at this time. MRI of the lumbar spine showed moderate-size intervertebral disk herniation in the lumbosacral interspace on the right side, touching the S1 nerve root. She received the intervertebral steroid injection. Physical Therapy followed. She will be expected to follow up with Dr. Fernando Chan in 2 weeks. DISCHARGE MEDICATIONS: 1. Flexeril 10 mg as needed. 2. [place], limited quantity 5/325. The patient was discharged hemodynamically in stable condition. Discharge time took over 30 minutes. Job ID: [id number] [facility]
--- NOTE | 2019-11-06 13:50 | EKG ---
Test Reason : Blood Pressure : / mmHG Vent. Rate : 078 BPM Atrial Rate : 078 BPM P-R Int : 146 ms QRS Dur : 096 ms QT Int : 374 ms P-R-T Axes : 041 060 029 degrees QTc Int : 426 ms Sinus rhythm with sinus arrhythmia with occasional Premature ventricular complexes Otherwise normal ECG Confirmed by ANNALISA HUNTER DO ([id number]), restaurant expeditor LINETTE HUGHES ([id number] on 11/06/2019 1:50:00 PM Referred By: Confirmed By:ANNALISA HUNTER DO
== END 2019-11-06 12:30 | disposition home or self-care (01) | DRG 552 ==
LOC: ERS 11:36 → OBSVTOIN 18:13 → ONC 18:13
PROVIDERS: ADMIT Internal Medicine; ATTEND Internal Medicine
PROC: 3E0R33Z Introduction of Anti-inflammatory into Spinal Canal, Percutaneous Approach (ICD-10-PCS; principal; 2019-11-05)
PROC: 3E0R3BZ Introduction of Anesthetic Agent into Spinal Canal, Percutaneous Approach (ICD-10-PCS; 2019-11-05)
DX: M51.26 Other intervertebral disc displacement, lumbar region (principal); G54.8 Other nerve root and plexus disorders; M54.17 Radiculopathy, lumbosacral region; Z87.891 Personal history of nicotine dependence
CPT/HCPCS: 72157; 72158; 74176; 80053; 80306; 81003; 81025; 85025; 93005; 94760; 96374; 96375; A9579; J1040; J1885; J2001; J2270; J2405; J3010; J8540; Q0163; Q9967; S0020